=== PATIENT | female | born 1990 | race Caucasian/White ===

== ENCOUNTER → 2020-07-29 11:02 | Outpatient (BNVA) | payer OTHER, SELFPAY | PROVIDERS: PCP Internal Medicine; Referring Provider Internal Medicine; Visit Provider Surgery | DX: E66.01 Morbid (severe) obesity due to excess calories (principal); Z68.43 Body mass index [BMI] 50.0-59.9, adult | CPT/HCPCS: 99214 ==

== ENCOUNTER → 2020-09-30 08:09 | Outpatient (BNVA) | payer OTHER, SELFPAY | PROVIDERS: PCP Internal Medicine; Visit Provider Physician Assistant | DX: Z76.89 Persons encountering health services in other specified circumstances (principal) ==

== ENCOUNTER → 2020-12-10 16:05 | Outpatient (BNVA) | payer OTHER, SELFPAY | PROVIDERS: PCP Internal Medicine; Visit Provider Surgery | DX: E66.01 Morbid (severe) obesity due to excess calories (principal); Z68.43 Body mass index [BMI] 50.0-59.9, adult | CPT/HCPCS: 99212 ==

== ENCOUNTER → 2020-12-17 09:29 | Outpatient (BNVA) | payer OTHER, SELFPAY | PROVIDERS: PCP Internal Medicine; Visit Provider Surgery | DX: Z01.818 Encounter for other preprocedural examination (principal); E66.01 Morbid (severe) obesity due to excess calories; Z68.43 Body mass index [BMI] 50.0-59.9, adult; R06.02 Shortness of breath | CPT/HCPCS: 99212 ==

== ENCOUNTER 2021-01-22 08:11 | Inpatient (IN) | payer OTHER, SELFPAY ==
--- NOTE | 2020-12-17 11:29 | ECG_ITS ---
Test Reason : R06.02 SOB Blood Pressure : / mmHG Vent. Rate : 062 BPM Atrial Rate : 062 BPM P-R Int : 150 ms QRS Dur : 084 ms QT Int : 404 ms P-R-T Axes : 007 035 023 degrees QTc Int : 410 ms Normal sinus rhythm Normal ECG When compared with ECG of 04-JUL-2020 12:44, No significant change was found Referred By: Casi Whittington Electronically Signed By:Shubham Dhaliwal
[2020-12-17 13:07] LABS: MANUAL DIFF FLAG NO
[2020-12-17 13:17] LABS: Glucose Urine UA NEG (NEG); Leukocyte Esterase Urine NEG (NEG); Nitrite Urine NEG (NEG); Specific Gravity - Urine >= 1.030 (1.005-1.025); Urine Blood NEG (NEG); Urine Ketones NEG (NEG); Urine Protein NEG (NEG-TRACE)
[2020-12-17 13:19] LABS: Appearance Urine CLOUDY; Color Urine YELLOW
[2020-12-17 13:20] LABS: Prothrombin Time 11.4 SEC (10.8-13.0)
[2020-12-17 13:23] LABS: Basophils Absolute Auto 0.1 X10*3/uL (0.0-0.2); Basophils Percent Auto 0.6 % (0-2); Eosinophils Absolute Auto 0.2 X10*3/uL (0.0-0.4); Eosinophils Percent Auto 2.9 % (0-4); Hematocrit 43.4 % (37-47); Imm Gran Abs Auto 0.02 X10*3/uL (0.00-0.03); Imm Gran Pct Auto 0.3 % (0.0-0.4); Lymphocytes Absolute Auto 1.5 X10*3/uL (1.2-4.9); Lymphocytes Percent Auto 19.5 % (20-40); Mean Corpuscular HGB Conc 32.3 g/dl (31.0-35.0); Mean Corpuscular Hemoglobin 28.3 pg (27.0-33.0); Mean Corpuscular Volume 87.7 fL (80-98); Mean Platelet Volume 11.4 fL (9.4-12.3); Monocytes Absolute Auto 0.5 X10*3/uL (0.1-1.2); Monocytes Percent Auto 6.2 % (2-11); Neutrophils Absolute Auto 5.4 X10*3/uL (2.0-8.3); Neutrophils Percent Auto 70.5 % (45-73); Platelet Count 207 X10*3/uL (160-400); Red Blood Count 4.95 X10*6/uL (4.20-5.50); Red Cell Distribution Width 15.1 % (11.0-16.0); White Blood Count 7.7 X10*3/uL (4.8-10.8)
[2020-12-17 14:35] LABS: Albumin Level 4.2 g/dL (3.5-5.0); Anion Gap 15 (12-20); Blood Urea Nitrogen 10 mg/dL (9-16); Calcium 8.9 mg/dL (8.4-10.2); Carbon Dioxide 25 mmol/L (22-29); Chloride 104 mmol/L (96-108); Estimated Glomerular Filt Rate > 60; Glucose Random 100 mg/dL (60-115); Potassium 4.5 mmol/L (3.3-5.1); Sodium 139 mmol/L (135-145)
[2020-12-17 14:54] LABS: UPreg QC Valid YES; Urine Pregnancy NEGATIVE (NEGATIVE)
[2021-01-17 08:39] VITALS: BMI 53.6
--- NOTE | 2021-01-20 15:39 | MHC.SHP ---
Pre-Procedural Eval Section B Chief Complaint: severe obesity,Lab Work,EKG 12/17/2020 Allergies: Allergies Allergy/AdvReac Type Severity Reaction Status Date / Time haloperidol [Haldol] AdvReac Intermediate restless Verified 12/17/20 10:51 legs Plan I have reviewed the history and physical and performed a pertinent physical examination on my patient. No changes have occurred unless specified.
--- NOTE | 2021-01-21 09:21 | HO.ANESPROP2 ---
Documented by User: Airam Gonzalez 01/21/21 09:23 HPI - Anesthesia Eval Consult details Narrative: 30yo F for Gastrectomy Sleeve PMFSH Active Problems Active Problems: All Active Problems (Updated 01/17/21 @ 08:41 by Kathi Chapa) BMI 50.0-59.9, adult (Acute) Shortness of breath (Acute) Preoperative examination (Acute) Morbid obesity with BMI of 50.0-59.9, adult (Acute) Past Medical History Medical History Asthma Bipolar disorder Broken finger History of COVID-19 Morbid obesity with BMI of 50.0-59.9, adult Family History Family History Mother Asthma COPD (chronic obstructive pulmonary disease) Father No problems noted. Brother No problems noted. Brother Down syndrome Sister No problems noted. Sister No problems noted. Daughter No problems noted. Surgical History Surgical History H/O wisdom tooth extraction Social History Social History Do you presently have visiting nurse or other home services: No Alcohol intake: current Alcohol intake frequency: holidays/special occasions only Smoking Status: Former smoker Smoked in Last 30 Days: No Smoking Quit Date: 07/2020 Use of substances other than those prescribed or required for medical reasons: Yes Substance Use Type: Marijuana Substance Use Type Other:: advised to hold pre-op Substance Use Frequency: Daily Have you been hit, kicked, punched, or otherwise hurt by someone within the past year? If so, by whom?: No Advance Directives Information Provided: No Recently lost weight without trying: No Meds Allergies Allergy/AdvReac Type Severity Reaction Status Date / Time haloperidol [Haldol] AdvReac Intermediate restless Verified 12/17/20 10:51 legs Home Medications Medication Instructions Recorded Confirmed Last Taken Type albuterol sulfate 90 mcg/actuation 2 inh INHALATION Q6H PRN 07/29/20 01/17/21 Unknown History breath activated powder inhaler,sensor thiamine HCl (vitamin B1) 50 mg 50 mg PO DAILY 07/29/20 12/17/20 Unknown History tablet vitamin A 2,400 mcg capsule 10,000 unit PO DAILY cap 07/29/20 12/17/20 Unknown History sertraline 100 mg tablet 150 mg PO DAILY 12/10/20 01/17/21 01/22/21 History loratadine [Claritin] 10 mg PO DAILY 01/17/21 01/17/21 Unknown History Exam Exam Date and Time: January 21, [id number] Height,Weight and Vital Signs: Height 5 ft 7.5 in Weight 157.85 kg Pertinent Lab Results Pertinent Lab Results: Laboratory Tests 12/17/20 12/17/20 12/17/20 11:45 11:45 11:45 WBC 7.7 RBC 4.95 Hgb 14.0 Hct 43.4 MCV 87.7 MCH 28.3 MCHC 32.3 RDW 15.1 Plt Count 207 MPV 11.4 Immature Gran % (Auto) 0.3 Neut % (Auto) 70.5 Lymph % (Auto) 19.5 L Hitchcock % (Auto) 6.2 Eos % (Auto) 2.9 Baso % (Auto) 0.6 Lymph # (Auto) 1.5 Hitchcock # (Auto) 0.5 Eos # (Auto) 0.2 Baso # (Auto) 0.1 Abs Immat Gran (auto) 0.02 Absolute Neuts (auto) 5.4 Absolute Nucleated RBC 0.000 Nucleated RBC % (auto) 0.0 PT 11.4 INR 1.0 APTT 36.0 Sodium 139 Potassium 4.5 Chloride 104 Carbon Dioxide 25 Anion Gap 15 BUN 10 Creatinine 0.68 Estim Creat Clear Calc TNP Estimated GFR > 60 Random Glucose 100 Calcium 8.9 Albumin 4.2 Urine Color Urine Appearance Urine pH Ur Specific [place] Urine Protein Urine Glucose (UA) Urine Ketones Urine Blood Urine Nitrite Ur Leukocyte Esterase Urine Test Blood Type Antibody Screen 12/17/20 12/17/20 12/17/20 11:45 Unknown Unknown WBC RBC Hgb Hct MCV MCH MCHC RDW Plt Count MPV Immature Gran % (Auto) Neut % (Auto) Lymph % (Auto) Hitchcock % (Auto) Eos % (Auto) Baso % (Auto) Lymph # (Auto) Hitchcock # (Auto) Eos # (Auto) Baso # (Auto) Abs Immat Gran (auto) Absolute Neuts (auto) Absolute Nucleated RBC Nucleated RBC % (auto) PT INR APTT Sodium Potassium Chloride Carbon Dioxide Anion Gap BUN Creatinine Estim Creat Clear Calc Estimated GFR Random Glucose Calcium Albumin Urine Color YELLOW Urine Appearance CLOUDY Urine pH 6.0 Ur Specific [place] >= 1.030 H Urine Protein NEG Urine Glucose (UA) NEG Urine Ketones NEG Urine Blood NEG Urine Nitrite NEG Ur Leukocyte Esterase NEG Urine Test NEGATIVE Blood Type A Negative Antibody Screen NEGATIVE Narrative Narrative: EKG 12/2020 Vent. Rate : 062 BPM Atrial Rate : 062 BPM P-R Int : 150 ms QRS Dur : 084 ms QT Int : 404 ms P-R-T Axes : 007 035 023 degrees QTc Int : 410 ms Normal sinus rhythm Normal ECG When compared with ECG of 04-JUL-2020 12:44, No significant change was found Assessment and Plan Assessment Anesthesia Assessment: Chart Reviewed Documented by User: Tamia Miguel 01/22/21 10:07 [facility] Past Medical History Medical History Asthma Bipolar disorder Broken finger History of COVID-19 Morbid obesity with BMI of 50.0-59.9, adult Family History Family History Mother Asthma COPD (chronic obstructive pulmonary disease) Father No problems noted. Brother No problems noted. Brother Down syndrome Sister No problems noted. Sister No problems noted. Daughter No problems noted. Family history of problems with anesthesia: No Surgical History Surgical History H/O wisdom tooth extraction History of Problems with Anesthesia: No ( Woke up during dental surgery at oral surgeon's office.) Social History Social History Do you presently have visiting nurse or other home services: No Alcohol intake: current Alcohol intake frequency: holidays/special occasions only Smoking Status: Former smoker Smoked in Last 30 Days: No Smoking Quit Date: 07/2020 Use of substances other than those prescribed or required for medical reasons: Yes Substance Use Type: Marijuana Substance Use Type Other:: advised to hold pre-op Substance Use Frequency: Daily Have you been hit, kicked, punched, or otherwise hurt by someone within the past year? If so, by whom?: No Advance Directives Information Provided: No Recently lost weight without trying: No Meds Allergies Allergy/AdvReac Type Severity Reaction Status Date / Time haloperidol [Haldol] AdvReac Intermediate restless Verified 12/17/20 10:51 legs Home Medications Medication Instructions Recorded Confirmed Last Taken Type albuterol sulfate 90 mcg/actuation 2 inh INHALATION Q6H PRN 07/29/20 01/17/21 Unknown History breath activated powder inhaler,sensor thiamine HCl (vitamin B1) 50 mg 50 mg PO DAILY 07/29/20 12/17/20 Unknown History tablet vitamin A 2,400 mcg capsule 10,000 unit PO DAILY cap 07/29/20 12/17/20 Unknown History sertraline 100 mg tablet 150 mg PO DAILY 12/10/20 01/17/21 01/22/21 History loratadine [Claritin] 10 mg PO DAILY 01/17/21 01/17/21 Unknown History Exam Height,Weight and Vital Signs: Vital Signs Temp Pulse Resp BP Pulse Ox 01/22/21 08:35 97.1 F 82 16 127/79 97 Laboratory Results - last 24 hr 01/22/21 01/22/21 01/22/21 08:17 08:17 08:33 Urine Test NEGATIVE COVID-19 (MELVI) Negative COVID-19 Clin Com See Note Blood Type A Negative Antibody Screen NEGATIVE Narrative Narrative: Patient denies h/o MANUEL or snoring. Never had sleep study. Airway Mallampati Class: II TM Dist: >3cm Neck ROM: Full Heart: RRR Lungs: CTAB Assessment and Plan Assessment Anesthesia Assessment: Anesthesia Plan Discussed and Chart Reviewed Final Anesthetic Review NPO: Yes ASA Class: III Final Preanesthetic Review: No Changes in Pt Med Stat, Meds/Allgs Chart Reviewed, Consent Obtained/Reviewed and Anes Risks/Benef Reviewed Patient Risk: Intermediate Procedure Risk: Intermediate Assessment/Block/Sedation in SS: Assess/Block/Sedation-SS Anesthetic Plan Anesthetic Plan: GA Disposition: Inp. Admit - Standard Bed
[2021-01-22] VITALS (16 sets, daily range): BP systolic 127–172; BP diastolic 63–97; PULSE 66–103; RESP 16–22; TEMP 35.8–36.6; O2SAT 96–99
[2021-01-22 08:41] LABS: UPreg QC Valid YES; Urine Pregnancy NEGATIVE (NEGATIVE)
[2021-01-22] MEDS: Lactated Ringers 1,000 ML 100 ML IVCONT (08:53)
[2021-01-22 09:01] LABS: COVID-19 Test Negative (Negative)
--- NOTE | 2021-01-22 11:22 | PC.NURSE ---
Patient rounded on frequently by this RN, offered warm blankets, lights off, closed curtain, bed to be adjusted. For most recent round patient expressed frustration with long wait time and stated I just want to go home, I didnt even want this surgery in the first place This RN contacted MEASURER to get approximate time for end of current surgery to give patient a rough estimate of how much longer she would be waiting. OR stated They arent sure how much longer. Rn relayed to patient there is no exact time estimate, there is a surgery going on now that needs to finish first, taking longer than anticipated. Patient became angry and began speaking profanities, stating This is ridiculous, I dont want to wait here, I havent eaten in 24 hours, nothing to drink in 12 hours, my mouth hurts its so dry and you have no idea when I will be in. I've been here since 7 o clock why am I here. Patient reassured that they are doing their best to get her in in a timely manner, offered mouth swab to help with dry mouth, adjustments to bed - offers refused by patient. RN had someone walk into OR to get more approximate time. Per the OR, unable to give time due to complications in current case and they understand if patient wishes to leave. Patient again told we cannot give perfect time estimate but that she is the next case. Patient requested to speak with Dr Whittington and informed she is in OR and cannot speak directly at this time, but could be contacted through office, should she wish to leave. Patient then asked about rescheduling surgery and was directed to call Pk's office to speak with improvement coordinator in regards to any scheduling. Patient called office and after phone call finished, this RN checked with patient and patient stated I will wait one more hour and thats it . Offered blankets, more pillows, mouth swab - patient refused. Curtain to remain closed as requested. Will continue to round frequently.
--- NOTE | 2021-01-22 14:51 | P.BOP_ITS ---
Brief Operative Note Date of Service: 01/22/21 Pre-op diagnosis: Morbid obesity BMI 54.1 Post-op diagnosis: other (Same and hiatal hernia) Procedure: Laparoscopic sleeve gastrectomy, hiatal hernia repair, Rox block, and intraoperative endoscopy Implants: covidien Shruthi Surgeon: Casi Whittington MD Anesthesia: [employer] Technician: Debora Pineda Estimated blood loss (mL): 5 Pathology: other (Partial gastrectomy) Condition: stable Disposition: PACU
--- NOTE | 2021-01-22 14:52 | P.OP_ITS ---
Operative Note Operative Note Date of Service: 01/22/21 Narrative: Patient was brought into the operating room and placed on the operating room table in the supine position. General anesthesia was induced. Normal DVT prophylaxis was instituted and the patient received 2 grams of cefotetan preoperatively. The abdomen was then prepped and draped in the normal sterile fashion. A safety time-out was performed. A mixture of 1% lidocaine with epinephrine and ?% Marcaine plain was used to an esthetize the planned incision site in the left upper quadrant. A #11 scalpel was used to make a 5 mm left upper quadrant transverse incision through which a veress needle was placed. Three pops were heard going through the fascia. A saline drop test was used to confirm that the veress needle was intraabdominal. An optiview technique was then used to place a 5mm port in the left upper quadrant. A 5 mm 30 degree laproscope was then placed through this port and the abdominal cavity was surveyed and was normal. The patient was placed in reverse Trendelenburg positioning. A jarad liver retractor was then placed in the subxyphoid position and it was used to hold up the left lobe of the liver to the abdominal wall. This was secured to the bed using the liver retractor curtis. A ROWDY block was then performed for pain control on the right side of the abdomen. A 5 mm port was placed in the right upper quadrant near the falciform ligament. A 12 mm port was then placed in the mid epigastrium. One additional 5 mm port was placed in the left upper quadrant just to the left of the placement of the first port. I then performed a ROWDY block on the left side of the abdomen. I then removed the epigastric fat pad; there was a small anterior hiatal hernia noted. I reapproximated the left and right crura with a total of 2 stitches of 2-0 ethibond and a laparoscopic knot pusher. There was no residual hiatal hernia. I then opened up the angle of His. We then gained entry into the lesser sac about 4-5 cm from the pylorus. I had anesthesia place a 34 Cypriot orogastric tube into the distal antrum to use as a sizing tool for gastric pouch size. I divided the short gastric vessels up to the angle of His. We then started the creation of the gastric pouch by firing a 60 mm purple load endostapler up the stomach about 4-5 cm from the pylorus. We completed the creation of the gastric pouch using a total of 4 firings of a 60 mm and 1 firing of a 45 mm purple load stapler. We had anesthesia remove the orogastric tube, then we clamped across the distal antrum using a fired 60 mm endostapler. We flattened the patient and then instilled normal saline surrounding the newly created staple line. I then performed an on-table endoscopy. I passed the gastroscopy into the posterior oropharynx and down the esophagus evaluating the esophageal mucosa which was normal. There was no evidence of hiatal hernia. I passed the gastroscope into the gastric pouch and insufflated the gastric pouch. There was healthy pink mucosa and no evidence of active bleeding. There was no evidence of leak on laparosco py. I desufflated the gastric pouch and removed the endoscope. I removed the endostapler from the abdomen and suctioned the fluid from the left upper quadrant. I then removed the partial gastrectomy specimen through the epigastric 12 mm port site. I reapproximated the 12 mm port using a 0 maxon suture with a laparoscopic suture passer. I instilled local anesthetic into the fascial closure site and tied the suture down at a pressure of 8-10 mm of Hg. There was no residual fascial defect. We removed the liver retractor and the left upper quadrant 5 mm ports under direct visualization. There was no evidence of any active bleeding. I desufflated the abdomen through the last remaining port and removed the laparoscope and 5 mm port. We reapproximated all incisions with a 4-0 monocryl subcuticular stitch. We cleaned and dried the abdominal skin and applied dermabond skin glue. All count were correct at the end of the case. The patient was awake and in stable condition prior to extubation and transfer to the recovery room.
[2021-01-22] MEDS: ondansetron HCL 4 MG/2 ML VIAL IVPUSH (15:03)
[2021-01-22] MEDS: Famotidine/PF 20 MG/2 ML VIAL IVPUSH (20:40)
[2021-01-22] MEDS: 0.9 % Sodium Chloride Flush 3 ML SYRINGE IVFLUSH (20:40)
--- NOTE | 2021-01-22 22:06 | PM.PNGS ---
Subjective Subjective Date of Service: 01/23/21 <Debora Pineda PA-C - Last Filed: 01/23/21 11:04> 01/23/21 <Casi Whittington MD - Last Filed: 01/23/21 09:43> Interval history: POD #1: Patient is doing well. Has been ambulating, using the incentive spirometer, and tolerating po liquids. No nausea or abdominal pain. Has some mild incisional pain. <Debora Pineda PA-C - Last Filed: 01/23/21 11:04> Pod #1 s/p lap sleeve gastrectomy and hiatal hernia repair. Doing well. Tolerating stage 3 diet, ambulating in hallway. Pain well controlled. Denies nausea or vomiting. Vitals and labs reviewed and are within limit for post op day 1. On exam, patient is well appearing, abdomen is soft, nd, mild appropriate incisional tenderness. Incisions c/d/I with dermabond in place. Plan: d/c home today. Follow up with me in 2 weeks. <Casi Whittington MD - Last Filed: 01/23/21 09:43> Physical Exam Vital Signs: Vital Signs: Last Vital Signs Temp 97.2 F 01/22/21 19:11 Pulse 69 01/22/21 19:11 Resp 20 01/22/21 19:11 BP 157/94 H 01/22/21 19:11 Pulse Ox 97 01/22/21 19:11 Body Mass Index 53.6 <Debora Pineda PA-C - Last Filed: 01/23/21 11:04> Const: General: cooperative, comfortable, no acute distress, alert and awake <Debora Pineda PA-C - Last Filed: 01/23/21 11:04> Nutritional Appearance: obese <Debora Pineda PA-C - Last Filed: 01/23/21 11:04> GI: Inspection: Yes normal to inspection, Yes incision (normal, slight erythema at site of surgical glue, no tenderness/warmth/drai) and Yes obesity <Debora Pineda PA-C - Last Filed: 01/23/21 11:04> Extrem: Right lower extremity: lower leg Details: no tenderness; no edema <Debora Pineda PA-C - Last Filed: 01/23/21 11:04> Left lower extremity: lower leg Details: no tenderness; no edema <Debora Pineda PA-C - Last Filed: 01/23/21 11:04> Progress Note: A&P Assessment and plan (1) Morbid obesity with BMI of 50.0-59.9, adult: Status: Acute <Debora Pineda PA-C - Last Filed: 01/23/21 11:04> (2) S/P laparoscopic sleeve gastrectomy: Status: Acute <JOE Bowles Last Filed: 01/23/21 11:04> (3) Intestinal malabsorption following gastrectomy: Status: Acute <JOE Bowles Last Filed: 01/23/21 11:04> (4) Hiatal hernia: Status: Acute <JOE Bowles Last Filed: 01/23/21 11:04> (5) History of repair of hiatal hernia: Status: Acute <JOE Bowles Last Filed: 01/23/21 11:04> Assessment and Plan: POD #1: Patient is doing well and will be discharged home today. All the discharge instructions were reviewed with the patient and given in writing. Patient will follow up as scheduled in 2 weeks. <Debora Pineda PA-C - Last Filed: 01/23/21 11:04> Fall Risk Details Current Medications: Current Medications Generic Name Dose Route Start Last Admin Trade Name Freq PRN Reason Stop Dose Admin Albuterol Sulfate 2 puff 01/22/21 17:15 Albuterol Sulfate 90 Mcg 8 Gm Inhaler INHALE Q6H PRN shortness of breath or wheezing Famotidine 20 mg 01/22/21 21:00 01/22/21 20:40 Famotidine/Pf 20 Mg/2 Ml Vial IVPUSH 20 mg BID DELORES Administration Hydromorphone HCl 0.25 mg 01/22/21 17:15 Hydromorphone Hcl 0.5 Mg/0.5 Ml Syringe IVPUSH Q4H PRN Pain, Severe (Pain Scale 7-10) Cefotetan Disodium 2 gm/ 50 mls @ 100 mls/hr 01/23/21 01:00 Sodium Chloride IV 01/23/21 01:29 POSTOP ONE Lactated Ringer's 1,000 mls @ 125 mls/hr 01/22/21 17:15 01/22/21 17:39 Lr IVCONT Not Given .Q8H DELORES Cefotetan Disodium 2 gm/ 50 mls @ 100 mls/hr 01/23/21 01:00 Sodium Chloride IV 01/23/21 01:29 POSTOP ONE Acetaminophen 1,000 mg in 100 mls @ 16.7 mls/hr 01/22/21 19:00 01/22/21 19:24 Ofirmev IV 16.7 mls/hr .Q6H DELORES Administration Ondansetron HCl 4 mg 01/22/21 17:15 01/22/21 17:39 Ondansetron Hcl 4 Mg/2 Ml Vial IVPUSH Not Given Q8H DELORES Ondansetron HCl 8 mg 01/22/21 17:15 01/22/21 17:39 Ondansetron Odt 8 Mg Tab.Rapdis TRANSLINGU Not Given Q8H DELORES Sertraline HCl 150 mg 01/23/21 09:00 Sertraline Hcl 50 Mg Tablet PO DAILY DELORES Sodium Chloride 3 ml 01/22/21 17:15 01/22/21 20:40 0.9 % Sodium Chloride Flush 3 Ml Syringe IVFLUSH 3 ml QSHIFT DELORES Administration <Debora Pineda PA-C - Last Filed: 01/23/21 11:04> Time Spent With Patient Time: Total time spent is greater than 50% in coordination of care (as documented) at patient's floor/unit and/or counseling patient: <Debora Pineda PA-C - Last Filed: 01/23/21 11:04> Time with patient: less than 15 minutes <Casi Whittington MD - Last Filed: 01/23/21 09:43>
--- NOTE | 2021-01-22 22:22 | PM.DS ---
DS: Providers Provider Date of Service: 01/23/21 Date of admission: 01/22/21 08:11 Primary care physician: Ej Parra MD DS: Medications Discharge Medications Home Medications: Home Medications Medication Instructions Recorded Confirmed albuterol sulfate 90 mcg/actuation 2 inh INHALATION Q6H PRN 07/29/20 01/17/21 breath activated powder inhaler,sensor thiamine HCl (vitamin B1) 50 mg 50 mg PO DAILY 07/29/20 12/17/20 tablet vitamin A 2,400 mcg capsule 10,000 unit PO DAILY cap 07/29/20 12/17/20 sertraline 100 mg tablet 150 mg PO DAILY 12/10/20 01/17/21 loratadine [Claritin] 10 mg PO DAILY 01/17/21 01/17/21 Previous Rx's Medication Instructions Recorded acetaminophen 500 mg tablet 1,000 mg PO Q6H PRN #30 tab 12/17/20 docusate sodium 100 mg capsule 100 mg PO BID #30 cap 12/17/20 famotidine 20 mg tablet 20 mg PO DAILY #30 tab 12/17/20 ondansetron HCl 4 mg tablet 4 mg PO Q6H PRN #30 tab 12/17/20 simethicone 80 mg chewable tablet 80 mg PO TID-QID PRN #30 tab 12/17/20 DS: Summary Time Spent with Patient Time attestation: Total time spent providing and/or coordinating discharge services: Discharge coordination time: Greater than 30 minutes Physical Exam Vital Signs: Vital Signs: Last Vital Signs Temp 97.2 F 01/22/21 19:11 Pulse 69 01/22/21 19:11 Resp 20 01/22/21 19:11 BP 157/94 H 01/22/21 19:11 Pulse Ox 97 01/22/21 19:11 Body Mass Index 53.6 DS: Data Data Completed and Pending Pending studies at discharge: Pending at discharge 01/22/21 14:26 Surgical [PTH] Routine Labs on day of discharge: Laboratory Results - last 24 hr 01/22/21 01/22/21 01/22/21 08:17 08:17 08:33 Urine Test NEGATIVE COVID-19 ([facility]) Negative COVID-19 Clin Com See Note Blood Type A Negative Antibody Screen NEGATIVE Discharge Plan Discharge Patient Disposition: Home, Self-Care Discharge Diagnosis: obesity s/p LSG Referrals: Ej Parra MD [Primary Care Provider] - 1 Week Discharge Medications: Continued loratadine [Claritin] 10 mg Tablet 10 mg PO DAILY RF: 0 Proair Digihaler 90 mcg/actuation aero powdr breath act w/sensor 2 inh inhalation Q6H PRN (Reason: shortness of breath or wheezing) RF: 0 sertraline 100 mg tablet 150 mg PO DAILY RF: 0 acetaminophen [Tylenol Extra Strength] 500 mg tablet 1,000 mg PO Q6H PRN (Reason: pain) Qty: 30 RF: 1 famotidine [Pepcid AC] 20 mg tablet 20 mg PO DAILY Qty: 30 RF: 1 simethicone [Gas Relief (simethicone)] 80 mg tablet,chewable 80 mg PO TID-QID PRN (Reason: abdominal distention) Qty: 30 RF: 1 ondansetron HCl [Zofran] 4 mg tablet 4 mg PO Q6H PRN (Reason: nausea and vomiting) Qty: 30 RF: 1 docusate sodium [Colace] 100 mg capsule 100 mg PO BID Qty: 30 RF: 1 Discontinued thiamine HCl (vitamin B1) 50 mg tablet 50 mg PO DAILY RF: 0 vitamin A 8,000 unit capsule 10,000 unit PO DAILY RF: 0 Discharge Orders: Discharge Order (Routine); Ordered 01/23/21 Ordered By: Casi Whittington Diet: other Activity on Discharge: No heavy lifting Stand Alone Forms: Patient Portal Discharge page Activity Restrictions/Additional Instructions: Discharge Instructions 1. Please call your doctor or come back to the emergency room should any new symptoms arise. 2. You will receive a courtesy call from [facility] 24-48 hours after discharge. 3. Activity: abstain from alcohol, practice limited stair climbing, no bending, no driving, no exercise, no illicit substances, no lifting, no sex, no tub bath, no work. 4. Diet: continue stage 3 protein shakes until your [address] Whittington. 5. Dressing Change/Wound Care: Your incision is covered by surgical glue. If the area is tender, you may apply an ice pack for short intervals (no more than 20 minutes on, followed by at least 20 minutes off). Do not apply heat. Do not use creams, lotions, or topical antibiotics unless instructed to do so by your surgeon. These can cause infection or allergic reaction. 6. Call your doctor if: - Your temperature exceeds 101.5 F - You experience excessive pain or swelling - You have an unexpected reaction to medication - You have excessive bleeding - You experience continued vomiting/nausea - Your incision begins to separate - Your incision shows signs of infection such as increased redness, swelling, excessive pain, heat, or drainage (light blood or clear fluid is normal) 7. General instructions: - No lifting greater than 5 lbs for the next 4 weeks. - No driving within 24 hours of taking narcotic pain medications. - If you do not move your bowels in the next 2 days, please take milk of magnesia over the counter. Please follow the post op diet and do not advance your diet until you are seen in the office in about 2 weeks. - Please walk around your home every hour or two to prevent blood clots from forming in your legs. You do not need to wake from sleeping to walk. - Please sleep in a bed or couch to prevent kinking at the hips and knees. - Please take your incentive spirometer (your lung flash welder) home with you and use it for the next few days to prevent pneumonias. - You may shower, no hot tubs, baths or swimming pools. - Please call the office with any questions or concerns such as increasing abdominal pain, fever, chills, shortness of breath, chest pain, leg pain or swelling, or redness or drainage from your incisions. - Please stay on stage 3 diet which includes sugar free clear liquids such as ice pops and jello and broth and crystal light. Avoid all carbonation. Please drink 3 protein shakes with at least 25-30 grams of protein daily or 3 of the Celebrate 4:1 shakes which can be purchased in our office. The Celebrate shakes have all of the bariatric vitamins you need if you consume these shakes. If you are drinking other protein shakes, you will need to purchase the Celebrate multivitamins and calcium that we provide in the office (they will provide all the vitamins you need). Please make sure you are consuming at least 40-60 ounces of water in addition to your 3 protein shakes daily. 8. Do not hesitate to contact the office with any questions at . Discharge Summary Date of Service: 01/23/21 Admitting Diagnosis: Morbid obesity BMI 54.1 Discharge Diagnosis: other (Same and hiatal hernia) Procedure Performed: Laparoscopic sleeve gastrectomy, hiatal hernia repair, Rox block, and intraoperative endoscopy Discharge Medications: 1. Simethicone 80mg tablet chewable (Si tablet every 6 hours orally for 7 days, #28, 1 RF) q4h prn gas 2. Acetaminophen 500 mg tablet (Si tablets as needed every 6 hours orally for 30 days, #240, 0 RF) 3. Ondansetron 4 mg tablet disintegrating (Si tablet every 6 hours orally for 7 days, #28, 1 RF) 4. Colace 100 mg capsule (Si capsule twice a day for 30 days, #60, 2 RF) 5. Pepcid 20 mg chewable tablet (Si tablet twice a day for 30 days, #60, 3 RF) Discharge Instructions: The patient should continue on the stage III bariatric diet, which includes 3 protein shakes of at least 20-30g of protein on a daily basis. The patient was encouraged to avoid drinking liquids with her protein shakes. They should wait 30-45 minutes in between her meals and drinking water. She should drink at least 40-60 ounces of water on a daily basis. They should ambulate while at home to avoid any blood clots in her lower extremities. They should call with any questions or concerns such as increase in abdominal pain, persistent nausea, vomiting, redness and drainage from her incisions, fever, chills, shortness of breast, or chest pain beyond what is normal for her. The patient should avoid all heavy lifting greater than 5 pounds for the next 4 weeks. The patient is already scheduled to follow up with me in 2 weeks time, but should call the office with any questions prior to that follow up appointment. The patient should not advance their diet until they are seen in the office for the 2 week appointment. Hospital Course: The patient was admitted after undergoing LSG. They were started on stage II (1 oz of fluid every 15 minutes) on POD #0. The next morning they were evaluated and started on stage III diet (protein shakes). All labs were within normal limits. On post-operative day #1 she was feeling better, nausea and epigastric pain improved and they were tolerating stage III bariatric diet well. The patient was discharged home. Discharge Disposition: Home. Care Plan Goals: weight loss Health Concerns: obesity Plan of Treatment: s/p LSG Assessment: 1 day post op LSG, doing well and discharged home Discharge Date/Time: 01/23/21 09:52
[2021-01-22] MEDS: Lactated Ringers 1,000 ML 125 ML IVCONT (23:21)
[2021-01-23] MEDS: cefoTEtan disodium 2 GM in 0.9 % Sodium Chloride 50 ML IV (00:58)
[2021-01-23] MEDS: ondansetron HCL 4 MG/2 ML VIAL IVPUSH ×2 (00:58→08:08)
[2021-01-23 04:00] VITALS: BP 143/83; PULSE 77; RESP 20; TEMP 36.4; O2SAT 96
[2021-01-23 06:25] LABS: MANUAL DIFF FLAG NO
[2021-01-23 06:39] LABS: Basophils Percent Auto 0.1 % (0-2); Hematocrit 40.9 % (37-47); Hemoglobin 13.3 g/dl (12.0-16.0); Imm Gran Abs Auto 0.06 X10*3/uL (0.00-0.03); Imm Gran Pct Auto 0.4 % (0.0-0.4); Lymphocytes Absolute Auto 1.3 X10*3/uL (1.2-4.9); Lymphocytes Percent Auto 9.5 % (20-40); Mean Corpuscular HGB Conc 32.5 g/dl (31.0-35.0); Mean Corpuscular Hemoglobin 29.1 pg (27.0-33.0); Mean Corpuscular Volume 89.5 fL (80-98); Mean Platelet Volume 10.8 fL (9.4-12.3); Monocytes Absolute Auto 0.7 X10*3/uL (0.1-1.2); Monocytes Percent Auto 5.4 % (2-11); Neutrophils Absolute Auto 11.4 X10*3/uL (2.0-8.3); Neutrophils Percent Auto 84.6 % (45-73); Platelet Count 245 X10*3/uL (160-400); Red Blood Count 4.57 X10*6/uL (4.20-5.50); Red Cell Distribution Width 14.8 % (11.0-16.0); White Blood Count 13.5 X10*3/uL (4.8-10.8)
[2021-01-23] MEDS: Lactated Ringers 1,000 ML 125 ML IVCONT (06:42)
[2021-01-23 07:02] LABS: Anion Gap 15 (12-20); Blood Urea Nitrogen 10 mg/dL (9-16); Calcium 8.5 mg/dL (8.4-10.2); Carbon Dioxide 22 mmol/L (22-29); Chloride 104 mmol/L (96-108); Creatinine Clr Calc Pharmacy 180.5; Estimated Glomerular Filt Rate > 60; Glucose Random 104 mg/dL (60-115); Potassium 4.4 mmol/L (3.3-5.1); Sodium 137 mmol/L (135-145)
[2021-01-23 08:00] VITALS: BP 139/86; PULSE 79; RESP 16; TEMP 36.6; O2SAT 97
[2021-01-23] MEDS: Famotidine/PF 20 MG/2 ML VIAL IVPUSH (08:08)
[2021-01-23] MEDS: Sertraline HCL 50 MG TABLET 150 MG PO (08:08)
--- NOTE | 2021-01-23 09:40 | MHC.CM.PN ---
PATIENT LIVES WITH HER FAMILY. SHE IS COMPLETELY INDEPENDENT WITH HER ADLS. NO DME OR VNA SERVICES. SHE IS AWARE OF TODAY'S DISCHARGE. HER MOM WILL PROVIDE TRANSPORT. RN AWARE OF PLAN.
--- NOTE | 2021-01-24 09:46 | HO.POSTANES ---
Post Anesthesia Evaluation Post Anesthesia Evaluation Vital Signs: Patient seen on 01/23/21 at 710am, VSS Anesthesia: General Endotracheal-GETA Mental Status: Awake Pain Control: Satisfactory Nausea/Vomiting: None Hydration: Adequate Anesthesia-Related Issues: No Anes. Related Issues
== END 2021-01-23 09:52 | disposition home or self-care (01) | DRG 403 ==
LOC: HO.SSSA 08:48 → HO.S3 16:50
PROVIDERS: Nurse Practitioner; Physician Assistant; Admitting Provider Surgery; PCP Internal Medicine; Visit Provider Surgery
PROC: 0DB64Z3 Excision of Stomach, Percutaneous Endoscopic Approach, Vertical (ICD-10-PCS; CPT 43845; principal; 2021-01-22 10:20)
DX: E66.01 Morbid (severe) obesity due to excess calories (principal); K44.9 Diaphragmatic hernia without obstruction or gangrene; Z20.822 Contact with and (suspected) exposure to COVID-19; Z68.43 Body mass index [BMI] 50.0-59.9, adult; Z86.16 Personal history of COVID-19; Z79.899 Other long term (current) drug therapy
CPT/HCPCS: 36415; 80048; 81003; 81025; 82040; 85025; 85610; 85730; 86850; 86900; 87635; 88307; 88342; 93005; 99024; C1776; J0131; J1100; J1170; J2250; J2405; J2550; J3010

== ENCOUNTER 2021-01-25 09:17 | Emergency (ER) | payer OTHER, SELFPAY ==
--- NOTE | ~2021-01-25 | CT_ITS ---
EXAMINATION: CT ANGIOGRAM OF THE CHEST WITH AND WITHOUT CONTRAST (CT PULMONARY ANGIOGRAM FOR PE) CLINICAL INFORMATION: Chest pain. COMPARISON: None TECHNIQUE: Prior to contrast administration, noncontrast localization images were obtained. Subsequently, multidetector volumetric imaging was performed from the thoracic inlet to below the diaphragms following the administration of 65 mL Omnipaque 350 intravenous contrast. No contrast reaction reported Sagittal, coronal, and MIP oblique sagittal reformatted images were obtained on the CT workstation, uploaded to PACS, and reviewed. This CT examination was performed using dose optimization techniques as appropriate, variously including the following: *Automated exposure control *Adjustment of mA and/or kV according to patient size (this includes techniques or standardized protocols for targeted exams where dose is matched to indication/reason for exam; i.e. extremities or head) *Use of iterative reconstruction technique Total exam dose-length product 626 mGy-cm FINDINGS: QUALITY OF STUDY/CONTRAST BOLUS: Suboptimal. PULMONARY ARTERIES: No large central or segmental pulmonary emboli. THORACIC AORTA: No aneurysm or dissection. LUNG: No focal consolidation, nodules or masses. PLEURA: No pleural effusion or pneumothorax. MEDIASTINUM: Normal heart size. No pericardial effusion. No hilar or mediastinal lymphadenopathy. No evidence of septal bowing or right heart strain. CHEST WALL/AXILLA: No axillary or internal mammary lymphadenopathy. OSSEOUS STRUCTURES: No acute or suspicious osseous abnormality. UPPER ABDOMEN: Unremarkable. No reflux of contrast into the hepatic veins to suggest elevated right heart pressures. CT/CT angio chest PE protocol IMPRESSION: Suboptimal evaluation. No large central or segmental emboli demonstrated. Otherwise normal examination. Clear lungs. No pleural effusion or pneumothorax. VTE: negative
--- NOTE | 2021-01-25 09:36 | ECG_ITS ---
Test Reason : CHEST PAIN Blood Pressure : / mmHG Vent. Rate : 069 BPM Atrial Rate : 069 BPM P-R Int : 162 ms QRS Dur : 084 ms QT Int : 380 ms P-R-T Axes : 011 031 023 degrees QTc Int : 407 ms Normal sinus rhythm Normal ECG When compared with ECG of 17-DEC-2020 11:39, No significant change was found Referred By: Belkis Do Electronically Signed By:Shubham Dhaliwal
--- NOTE | 2021-01-25 09:38 | ED.CHESTPAIN ---
HPI - Chest Pain General Chief Complaint: Chest Pain Stated Complaint: CHEST PAIN Time Seen by Provider: 01/25/21 09:35 Source: patient Mode of arrival: ambulatory Limitations: no limitations History of Present Illness MD complaint: chest pain Pertinent past history: other (s/p gastric sleeve on Wednesday) Onset (ago): day(s) (yesterday) Timing of current episode: episodic Prior episodes: No Onset: during rest and during exertion Pain location: left chest Severity: moderate Quality: sharp Relieving factors: nothing Exacerbating factors: inspiration Context: recent surgery Associated symptoms: dyspnea Treatment prior to arrival: none Related Data Home Medications Medication Instructions Recorded Confirmed albuterol sulfate 90 mcg/actuation 2 inh INHALATION Q6H PRN 07/29/20 01/17/21 breath activated powder inhaler,sensor sertraline 100 mg tablet 150 mg PO DAILY 12/10/20 01/17/21 loratadine [Claritin] 10 mg PO DAILY 01/17/21 01/17/21 Previous Rx's Medication Instructions Recorded acetaminophen 500 mg tablet 1,000 mg PO Q6H PRN #30 tab 12/17/20 docusate sodium 100 mg capsule 100 mg PO BID #30 cap 12/17/20 famotidine 20 mg tablet 20 mg PO DAILY #30 tab 12/17/20 ondansetron HCl 4 mg tablet 4 mg PO Q6H PRN #30 tab 12/17/20 simethicone 80 mg chewable tablet 80 mg PO TID-QID PRN #30 tab 12/17/20 Allergies Allergy/AdvReac Type Severity Reaction Status Date / Time haloperidol [Haldol] AdvReac Intermediate restless Verified 12/17/20 10:51 legs Review of Systems Review of Systems: Constitutional : No Weight loss, No Fever, No Chills ENT/Mouth : No sore throat, No Rhinorrhea Eyes: No Eye Pain, No Swelling Cardiovascular : pos Chest Pain, pos SOB, no Dyspnea on Exertion, No Orthopnea, No Edema, No Palpitations Respiratory : No Cough, No Sputum Gastrointestinal : no Nausea, No Vomiting, No Diarrhea, No abdominal Pain, No Hematochezia, No Melena Genitourinary : No Dysuria, No Urinary Frequency Musculoskeletal : No joint pain, No Myalgias, No Joint Swelling Skin : No Skin Lesions, No rash Neuro : No Weakness, No Numbness, No Dizziness, No Headache Psych : No Anxiety/Panic, No Depression Heme/Lymph: No Bruising, No Lymphadenopathy Endocrine : No Polyuria, No Polydipsia All other systems reviewed and are negative [facility] Past Medical History Attestation statement: The following information was validated with the patient. Medical History Asthma Bipolar disorder Broken finger Hiatal hernia History of COVID-19 Intestinal malabsorption following gastrectomy Morbid obesity with BMI of 50.0-59.9, adult Surgical History H/O wisdom tooth extraction History of repair of hiatal hernia S/P laparoscopic sleeve gastrectomy Family History Family History Mother Asthma COPD (chronic obstructive pulmonary disease) Father No problems noted. Brother No problems noted. Brother Down syndrome Sister No problems noted. Sister No problems noted. Daughter No problems noted. Social History Social History Alcohol intake: current Alcohol intake frequency: holidays/special occasions only Smoking Status: Former smoker Use of substances other than those prescribed or required for medical reasons: Yes Substance Use Type: Marijuana Advance Directives: Yes Advance Directives Information Provided: Yes Advance Directives on File: No service: No Physical Exam Vital Signs: Vital Signs: Last Vital Signs Temp 98.1 F 01/25/21 11:00 Pulse 70 01/25/21 11:29 Resp 19 01/25/21 11:29 BP 125/69 01/25/21 11:29 Pulse Ox 97 01/25/21 11:29 Body Mass Index 52.4 Appearance: Alert. Oriented X3. No acute distress. Eyes: Pupils equal, round and reactive to light. ENT: Pharynx normal. Neck: Normal inspection. Neck supple. CVS: Normal heart rate and rhythm. Pulses normal. Respiratory: No respiratory distress. Breath sounds normal. Abdomen: Soft and nontender. incisions are c/d/i no signs of infection Skin: Skin warm and dry. Normal skin color. Normal skin turgor. Extremities: No lower extremity edema. No calf ttp Neuro: Oriented X 3. No motor deficit. No sensory deficit. Course Course Course Narrative: no acute findings, stable for DC labs reassuring, EKG and trop negative at 6 hr jeanette MDM - Chest Pain MDM Narrative Medical decision making narrative: 30 yo female s/p gastric sleeve surgery on Wednesday comes in now with c/o pleuritic chest pain and dyspnea at this time given recent procedure she will need labs, EKG, CTA for PE - IV morphine for pain, dispo per results and findings. Lab Data Result diagrams: 01/25/21 10:18 01/25/21 10:18 Labs: Lab Results 01/25/21 01/25/21 01/25/21 Range/Units 10:18 10:18 10:18 WBC 10.4 (4.8-10.8) X10*3/uL RBC 4.74 (4.20-5.50) X10*6/uL Hgb 13.7 (12.0-16.0) g/dl Hct 42.3 (37-47) % MCV 89.2 (80-98) fL MCH 28.9 (27.0-33.0) pg MCHC 32.4 (31.0-35.0) g/dl RDW 14.6 (11.0-16.0) % Plt Count 241 (160-400) X10*3/uL MPV 10.1 (9.4-12.3) fL Immature Gran % (Auto) 0.3 (0.0-0.4) % Neut % (Auto) 74.9 H (45-73) % Lymph % (Auto) 18.0 L (20-40) % [place] % (Auto) 5.3 (2-11) % Eos % (Auto) 1.1 (0-4) % Baso % (Auto) 0.4 (0-2) % Lymph # (Auto) 1.9 (1.2-4.9) X10*3/uL [place] # (Auto) 0.6 (0.1-1.2) X10*3/uL Eos # (Auto) 0.1 (0.0-0.4) X10*3/uL Baso # (Auto) 0.0 (0.0-0.2) X10*3/uL Abs Immat Gran (auto) 0.03 (0.00-0.03) X10*3/uL Absolute Neuts (auto) 7.8 (2.0-8.3) X10*3/uL Absolute Nucleated RBC 0.000 (0.0-0.012) X10*3/uL Nucleated RBC % (auto) 0.0 (0.0-0.2) /100WBC PT 14.0 H D (10.8-13.0) SEC INR 1.2 H (0.9-1.1) APTT 38.2 H (24.1-38.0) SEC Sodium 138 (135-145) mmol/L Potassium 4.3 (3.3-5.1) mmol/L Chloride 104 (96-108) mmol/L Carbon Dioxide 25 (22-29) mmol/L Anion Gap 13 (12-20) BUN 15 (9-16) mg/dL Creatinine 0.70 (0.5-1.4) mg/dL Estim Creat Clear Calc 187.2 Estimated GFR > 60 Random Glucose 89 (60-115) mg/dL Calcium 9.0 (8.4-10.2) mg/dL Magnesium 1.9 (1.6-2.6) mg/dL Total Bilirubin 0.7 (0.0-1.0) mg/dL Direct Bilirubin 0.2 (0.0-0.5) mg/dL AST 17 (5-31) U/L ALT 26 (0-31) U/L Alkaline Phosphatase 65 (39-117) U/L Troponin I High Sens (<3.5-17.0) ng/L Total Protein 6.9 (6.5-8.0) g/dL Albumin 4.1 (3.5-5.0) g/dL Lipase 33 (8-78) U/L 01/25/21 Range/Units 10:18 WBC (4.8-10.8) X10*3/uL RBC (4.20-5.50) X10*6/uL Hgb (12.0-16.0) g/dl Hct (37-47) % MCV (80-98) fL MCH (27.0-33.0) pg MCHC (31.0-35.0) g/dl RDW (11.0-16.0) % Plt Count (160-400) X10*3/uL MPV (9.4-12.3) fL Immature Gran % (Auto) (0.0-0.4) % Neut % (Auto) (45-73) % Lymph % (Auto) (20-40) % [place] % (Auto) (2-11) % Eos % (Auto) (0-4) % Baso % (Auto) (0-2) % Lymph # (Auto) (1.2-4.9) X10*3/uL [place] # (Auto) (0.1-1.2) X10*3/uL Eos # (Auto) (0.0-0.4) X10*3/uL Baso # (Auto) (0.0-0.2) X10*3/uL Abs Immat Gran (auto) (0.00-0.03) X10*3/uL Absolute Neuts (auto) (2.0-8.3) X10*3/uL Absolute Nucleated RBC (0.0-0.012) X10*3/uL Nucleated RBC % (auto) (0.0-0.2) /100WBC PT (10.8-13.0) SEC INR (0.9-1.1) APTT (24.1-38.0) SEC Sodium (135-145) mmol/L Potassium (3.3-5.1) mmol/L Chloride (96-108) mmol/L Carbon Dioxide (22-29) mmol/L Anion Gap (12-20) BUN (9-16) mg/dL Creatinine (0.5-1.4) mg/dL Estim Creat Clear Calc Estimated GFR Random Glucose (60-115) mg/dL Calcium (8.4-10.2) mg/dL Magnesium (1.6-2.6) mg/dL Total Bilirubin (0.0-1.0) mg/dL Direct Bilirubin (0.0-0.5) mg/dL AST (5-31) U/L ALT (0-31) U/L Alkaline Phosphatase (39-117) U/L Troponin I High Sens < 3.5 (<3.5-17.0) ng/L Total Protein (6.5-8.0) g/dL Albumin (3.5-5.0) g/dL Lipase (8-78) U/L ECG Data ECG #1: Attestation: I personally reviewed and interpreted this ECG as follows: ECG interpretation date: 01/25/21 ECG interpretation time: 10:11 Interpretation: Rate: 69 Rhythm: NSR [place]: normal Normal P waves. Normal RAVIN. Normal QRS complex. ST T wave : no RAUL, inverted t wave III qTC: normal prior studies: no acute ischemia The study has been interpreted contemporaneously by me. . Discharge Plan Discharge Clinical Impression: Atypical chest pain Patient Disposition: Home, Self-Care Instructions: Chest Pain (ED) Additional Instructions: return to ED for any worsening symptoms or concerns Prescriptions: No Action loratadine [Claritin] 10 mg Tablet 10 mg PO DAILY RF: 0 Proair Digihaler 90 mcg/actuation aero powdr breath act w/sensor 2 inh inhalation Q6H PRN (Reason: shortness of breath or wheezing) RF: 0 sertraline 100 mg tablet 150 mg PO DAILY RF: 0 acetaminophen [Tylenol Extra Strength] 500 mg tablet 1,000 mg PO Q6H PRN (Reason: pain) Qty: 30 RF: 1 famotidine [Pepcid AC] 20 mg tablet 20 mg PO DAILY Qty: 30 RF: 1 simethicone [Gas Relief (simethicone)] 80 mg tablet,chewable 80 mg PO TID-QID PRN (Reason: abdominal distention) Qty: 30 RF: 1 ondansetron HCl [Zofran] 4 mg tablet 4 mg PO Q6H PRN (Reason: nausea and vomiting) Qty: 30 RF: 1 docusate sodium [Colace] 100 mg capsule 100 mg PO BID Qty: 30 RF: 1 Referrals: Ej Parra MD [Primary Care Provider] - 2 days (if not better)
[2021-01-25 09:49] VITALS: BP 125/58; PULSE 74; RESP 19; TEMP 36.7; O2SAT 96; BMI 52.4
[2021-01-25 10:23] LABS: MANUAL DIFF FLAG NO
[2021-01-25 10:25] VITALS: RESP 12
[2021-01-25] MEDS: Morphine Sulfate 4 MG/ML CARTRIDGE IVPUSH (10:25)
[2021-01-25] MEDS: ondansetron HCL 4 MG/2 ML VIAL IVPUSH (10:25)
[2021-01-25 10:26] LABS: Basophils Percent Auto 0.4 % (0-2); Eosinophils Absolute Auto 0.1 X10*3/uL (0.0-0.4); Eosinophils Percent Auto 1.1 % (0-4); Hematocrit 42.3 % (37-47); Hemoglobin 13.7 g/dl (12.0-16.0); Imm Gran Abs Auto 0.03 X10*3/uL (0.00-0.03); Imm Gran Pct Auto 0.3 % (0.0-0.4); Lymphocytes Absolute Auto 1.9 X10*3/uL (1.2-4.9); Mean Corpuscular HGB Conc 32.4 g/dl (31.0-35.0); Mean Corpuscular Hemoglobin 28.9 pg (27.0-33.0); Mean Corpuscular Volume 89.2 fL (80-98); Mean Platelet Volume 10.1 fL (9.4-12.3); Monocytes Absolute Auto 0.6 X10*3/uL (0.1-1.2); Monocytes Percent Auto 5.3 % (2-11); Neutrophils Absolute Auto 7.8 X10*3/uL (2.0-8.3); Neutrophils Percent Auto 74.9 % (45-73); Platelet Count 241 X10*3/uL (160-400); Red Blood Count 4.74 X10*6/uL (4.20-5.50); Red Cell Distribution Width 14.6 % (11.0-16.0); White Blood Count 10.4 X10*3/uL (4.8-10.8)
[2021-01-25 10:31] LABS: INTERNATIONAL NORM RATIO 1.2 (0.9-1.1)
[2021-01-25 10:49] LABS: Alanine Aminotransferase 26 U/L (0-31); Albumin Level 4.1 g/dL (3.5-5.0); Alkaline Phosphatase 65 U/L (39-117); Anion Gap 13 (12-20); Aspartate Amino Transferase 17 U/L (5-31); Bilirubin Direct 0.2 mg/dL (0.0-0.5); Bilirubin Total 0.7 mg/dL (0.0-1.0); Blood Urea Nitrogen 15 mg/dL (9-16); Carbon Dioxide 25 mmol/L (22-29); Chloride 104 mmol/L (96-108); Creatinine Clr Calc Pharmacy 187.2; Estimated Glomerular Filt Rate > 60; Glucose Random 89 mg/dL (60-115); Lipase 33 U/L (8-78); Magnesium 1.9 mg/dL (1.6-2.6); Potassium 4.3 mmol/L (3.3-5.1); Sodium 138 mmol/L (135-145); Total Protein 6.9 g/dL (6.5-8.0)
[2021-01-25 10:55] LABS: Troponin-I High Sensitivity < 3.5 ng/L (<3.5-17.0)
[2021-01-25 11:00] VITALS: BP 125/69; PULSE 65; RESP 15; TEMP 36.7; O2SAT 96
[2021-01-25 11:05] LABS: Partial Thromboplastin Time 38.2 SEC (24.1-38.0)
[2021-01-25 11:29] VITALS: BP 125/69; PULSE 70; PULSE 73; RESP 19; O2SAT 97
[2021-01-25 12:12] VITALS: BP 122/43
[2021-01-28] MEDS: iohexoL 350 MG/ML 100 ML INFUS..BTL IV (11:19)
== END 2021-01-25 12:26 | disposition home or self-care (01) ==
PROVIDERS: Emergency Provider Emergency Medicine; PCP Internal Medicine
DX: R06.00 Dyspnea, unspecified (principal); F12.90 Cannabis use, unspecified, uncomplicated; Z79.899 Other long term (current) drug therapy; Z87.891 Personal history of nicotine dependence
CPT/HCPCS: 36415; 71275; 80048; 80076; 83690; 83735; 84484; 85025; 85610; 85730; 93005; 96365; 96375; 99285; J2270; J2405; Q9967

== ENCOUNTER → 2021-02-06 10:01 | Outpatient (BNVA) | payer OTHER, SELFPAY | PROVIDERS: PCP Internal Medicine; Visit Provider Surgery | DX: Z98.84 Bariatric surgery status (principal) | CPT/HCPCS: 99212 ==

== ENCOUNTER → 2021-04-01 08:57 | Outpatient (BNVA) | payer OTHER, SELFPAY | PROVIDERS: PCP Internal Medicine; Visit Provider Dietitian, Registered | DX: E66.01 Morbid (severe) obesity due to excess calories (principal); Z68.42 Body mass index [BMI] 45.0-49.9, adult | CPT/HCPCS: 97803 ==

== ENCOUNTER 2021-07-11 18:19 | Emergency (ER) | payer OTHER, SELFPAY ==
--- NOTE | ~2021-07-11 | US_ITS ---
EXAMINATION: US ABDOMEN LIMITED CLINICAL INFORMATION: Right upper quadrant epigastric pain. Nausea.. COMPARISON: CT chest January 25, 2021 TECHNIQUE: Real-time imaging of the right upper quadrant abdominal viscera. Color Doppler exam used. FINDINGS: PANCREAS: Portion of pancreatic head visualized are normal. The remainder the pancreas is obscured by bowel gas. LIVER: Diffuse increased echogenicity of liver parenchyma due to fatty change. No focal liver lesion or intrahepatic bile duct dilatation. GALLBLADDER: Normal. The gallbladder is physiologically distended without evidence of stones, sludge, polyps, wall thickening or pericholecystic fluid. COMMON BILE DUCT: Normal in caliber measuring 0.4 cm in diameter. RIGHT KIDNEY: Normal. No hydronephrosis. No renal calculi or focal parenchymal lesions. The kidney measures 10.0 cm in maximum dimension. FREE FLUID: None. US/US abdomen limited IMPRESSION: 1. No acute abnormality. No acute change of gallbladder. No bile duct dilatation. 2. Diffuse increased echogenicity of liver parenchyma consistent with fatty change.
[2021-07-11 19:01] VITALS: BP 133/83; PULSE 70; RESP 18; TEMP 36.5; O2SAT 98; BMI 38.7
--- NOTE | 2021-07-11 21:22 | ED.ABDPAIN ---
HPI - Abdominal Pain General Chief Complaint: Abdominal Pain Stated Complaint: Abdominal pain Time Seen by Provider: 07/11/21 21:01 Source: patient Mode of arrival: ambulatory History of Present Illness HPI narrative: 30-year-old female with history of depression and gastric sleeve surgery in the 1st part of this year who reports that she has had 2 days of severe epigastric pain on specifically changing position from lying down to sitting up that is been associated with some nausea but denies any vomiting and patient states she has continued to pass flatus and have bowel movements and denies any urinary symptoms. In addition, she denies that the gallbladder was removed at the time of her gastric surgery as well as denying any fevers, chills, shortness of breath, chest pain/palpitations, calf swelling or recent travel. In addition, she denies any use of NSAIDs. Related Data Home Medications Medication Instructions Recorded Confirmed albuterol sulfate 90 mcg/actuation 2 inh INHALATION Q6H PRN 07/29/20 02/06/21 breath activated powder inhaler,sensor (Proair Digihaler) sertraline 100 mg tablet 150 mg PO DAILY 12/10/20 02/06/21 loratadine 10 mg tablet (Claritin) 10 mg PO DAILY 01/17/21 02/06/21 Previous Rx's Medication Instructions Recorded docusate sodium 100 mg capsule 100 mg PO BID #30 cap 12/17/20 (Colace) famotidine 20 mg tablet (Pepcid AC) 20 mg PO DAILY #30 tab 12/17/20 simethicone 80 mg chewable tablet 80 mg PO TID-QID PRN #30 tab 12/17/20 (Gas Relief (simethicone)) cephalexin 500 mg capsule 500 mg PO Q12H 5 Days #10 cap 07/11/21 omeprazole 40 mg capsule,delayed 40 mg PO DAILY #30 cap 07/11/21 release Allergies Allergy/AdvReac Type Severity Reaction Status Date / Time haloperidol [Haldol] AdvReac Intermediate restless Verified 02/06/21 10:31 legs amphetamine [From Adderall] AdvReac Abdominal Verified 07/11/21 19:04 Pain dextroamphetamine AdvReac Abdominal Verified 07/11/21 19:04 [From Adderall] Pain prochlorperazine AdvReac Unknown Verified 07/11/21 19:04 [From Compazine] Review of Systems Review of Systems Pertinent positives and negatives as stated in HPI 10 point review of systems otherwise negative. Physical Exam Vital Signs: Vital Signs: Last Vital Signs Temp 98.9 F 07/11/21 21:43 Pulse 61 07/11/21 21:43 Resp 16 07/11/21 21:43 BP 109/63 07/11/21 21:43 Pulse Ox 99 07/11/21 21:43 Body Mass Index 38.7 VITAL SIGNS: Reviewed. GENERAL: Well developed, well nourished, in no acute distress. HEAD: Normocephalic/atraumatic EYES: PERRLA, EOMI OROPHARYNX: no oral lesions noted, posterior pharynx clear LUNGS: Normal breath sounds. No adventitious sounds or accessory muscle use. SpO2<98> CARDIOVASCULAR: Regular rate and rhythm without noted murmurs, no JVD or lower extremity edema. ABDOMEN: Obese, Soft, tenderness on palpation without rebound to the epigastric/right upper quadrant, exam is limited by body habitus, non-distended with bowel sounds. MUSCULOSKELETAL: No tenderness, deformities, or effusions noted on gross inspection. EXTREMITIES: No cyanosis, clubbing or edema. SKIN: Inspection of the skin reveals no rashes NEUROLOGIC: Alert and oriented x 4. Strength and sensation to light touch were grossly intact x 4. Course Course Course Narrative: 30-year-old female with history and clinical presentation suggestive of possible gastritis, gastric ulcer, gallbladder pathology. Less likely thought to be SBO or ileus. Review of all investigations demonstrates no acute findings other than a UTI. Patient was also provided with a GI cocktail for the very real possibility of some underlying gastritis as patient has endorsed she is under ?a lot of stress?. Otherwise, she is discharged in stable condition and will be treated with a course of antibiotics and instructed to follow-up with her primary care provider as well as her bariatric surgeon for further evaluation. MDM - Abdominal Pain Lab Data Result diagrams: 07/11/21 21:26 07/11/21 21: Labs: Lab Results 07/11/21 07/11/21 07/11/21 Range/Units 21:26 21:26 21:26 WBC 5.5 (4.8-10.8) X10*3/uL RBC 4.00 L (4.20-5.50) X10*6/uL Hgb 12.9 (12.0-16.0) g/dl Hct 39.2 (37-47) % MCV 98.0 (80-98) fL MCH 32.3 (27.0-33.0) pg MCHC 32.9 (31.0-35.0) g/dl RDW 16.5 H (11.0-16.0) % Plt Count 216 (160-400) X10*3/uL MPV 10.7 (9.4-12.3) fL Immature Gran % (Auto) 0.4 (0.0-0.4) % Neut % (Auto) 60.1 (45-73) % Lymph % (Auto) 29.2 (20-40) % [place] % (Auto) 6.5 (2-11) % Eos % (Auto) 3.6 (0-4) % Baso % (Auto) 0.2 (0-2) % Lymph # (Auto) 1.6 (1.2-4.9) X10*3/uL [place] # (Auto) 0.4 (0.1-1.2) X10*3/uL Eos # (Auto) 0.2 (0.0-0.4) X10*3/uL Baso # (Auto) 0.0 (0.0-0.2) X10*3/uL Abs Immat Gran (auto) 0.02 (0.00-0.03) X10*3/uL Absolute Neuts (auto) 3.3 (2.0-8.3) X10*3/uL Absolute Nucleated RBC 0.000 (0.0-0.012) X10*3/uL Nucleated RBC % (auto) 0.0 (0.0-0.2) /100WBC Sodium 143 (135-145) mmol/L Potassium 3.9 (3.3-5.1) mmol/L Chloride 109 H (96-108) mmol/L Carbon Dioxide 28 (22-29) mmol/L Anion Gap 10 L (12-20) BUN 4 L D (9-16) mg/dL Creatinine 0.66 (0.5-1.4) mg/dL Estim Creat Clear Calc 166.4 Estimated GFR > 60 Random Glucose 96 (60-115) mg/dL Lactic Acid 1.0 (0.5-2.0) mmol/L Calcium 8.8 (8.4-10.2) mg/dL Total Bilirubin 0.6 (0.0-1.0) mg/dL AST 19 (5-31) U/L ALT 18 (0-31) U/L Alkaline Phosphatase 75 (39-117) U/L Total Protein 5.5 L D (6.5-8.0) g/dL Albumin 3.3 L (3.5-5.0) g/dL Lipase 25 (8-78) U/L Urine Color Urine Appearance Urine pH (5.0-8.0) Ur Specific [place] (1.005-1.025) Urine Protein (NEG-TRACE) MG/DL Urine Glucose (UA) (NEG) MG/DL Urine Ketones (NEG) MG/DL Urine Blood (NEG) Urine Nitrite (NEG) Ur Leukocyte Esterase (NEG) Urine RBC (0) /HPF Urine WBC (0-4) /HPF Ur Squamous Epith Cells /LPF Calcium Oxalate Crystal /LPF Urine Bacteria /LPF Urine Test (NEGATIVE) 07/11/21 07/11/21 Range/Units 21:28 21:28 WBC (4.8-10.8) X10*3/uL RBC (4.20-5.50) X10*6/uL Hgb (12.0-16.0) g/dl Hct (37-47) % MCV (80-98) fL MCH (27.0-33.0) pg MCHC (31.0-35.0) g/dl RDW (11.0-16.0) % Plt Count (160-400) X10*3/uL MPV (9.4-12.3) fL Immature Gran % (Auto) (0.0-0.4) % Neut % (Auto) (45-73) % Lymph % (Auto) (20-40) % [place] % (Auto) (2-11) % Eos % (Auto) (0-4) % Baso % (Auto) (0-2) % Lymph # (Auto) (1.2-4.9) X10*3/uL [place] # (Auto) (0.1-1.2) X10*3/uL Eos # (Auto) (0.0-0.4) X10*3/uL Baso # (Auto) (0.0-0.2) X10*3/uL Abs Immat Gran (auto) (0.00-0.03) X10*3/uL Absolute Neuts (auto) (2.0-8.3) X10*3/uL Absolute Nucleated RBC (0.0-0.012) X10*3/uL Nucleated RBC % (auto) (0.0-0.2) /100WBC Sodium (135-145) mmol/L Potassium (3.3-5.1) mmol/L Chloride (96-108) mmol/L Carbon Dioxide (22-29) mmol/L Anion Gap (12-20) BUN (9-16) mg/dL Creatinine (0.5-1.4) mg/dL Estim Creat Clear Calc Estimated GFR Random Glucose (60-115) mg/dL Lactic Acid (0.5-2.0) mmol/L Calcium (8.4-10.2) mg/dL Total Bilirubin (0.0-1.0) mg/dL AST (5-31) U/L ALT (0-31) U/L Alkaline Phosphatase (39-117) U/L Total Protein (6.5-8.0) g/dL Albumin (3.5-5.0) g/dL Lipase (8-78) U/L Urine Color YELLOW Urine Appearance HAZY Urine pH 6.0 (5.0-8.0) Ur Specific [place] >= 1.030 H (1.005-1.025) Urine Protein TRACE (NEG-TRACE) MG/DL Urine Glucose (UA) NEG (NEG) MG/DL Urine Ketones NEG (NEG) MG/DL Urine Blood NEG (NEG) Urine Nitrite POS H (NEG) Ur Leukocyte Esterase NEG (NEG) Urine RBC 0 (0) /HPF Urine WBC 0 (0-4) /HPF Ur Squamous Epith Cells 2+ /LPF Calcium Oxalate Crystal 3+ /LPF Urine Bacteria 1+ /LPF Urine Test NEGATIVE (NEGATIVE) Discharge Plan Discharge Clinical Impression: UTI (urinary tract infection), Gastritis Patient Disposition: Home, Self-Care Instructions: Gastritis (ED), Urinary Tract Infection in Women (ED), Diet for Stomach Ulcers and Gastritis (ED) Additional Instructions: 1. Resume all home medications as prescribed. 2. Complete the entire course of antibiotics and follow-up with your primary care provider for follow-up of urine culture. 3. Will be started on an antacid, but you should follow-up with your bariatric surgeon for discussion of possible gastritis/ulcer. Return to the ER for acute worsening of symptoms. Prescriptions: New cephalexin 500 mg capsule 500 mg PO Q12H 5 Days Qty: 10 RF: 0 omeprazole 40 mg capsule,delayed release(DR/EC) 40 mg PO DAILY Qty: 30 RF: 0 No Action loratadine [Claritin] 10 mg Tablet 10 mg PO DAILY RF: 0 Proair Digihaler 90 mcg/actuation aero powdr breath act w/sensor 2 inh inhalation Q6H PRN (Reason: shortness of breath or wheezing) RF: 0 sertraline 100 mg tablet 150 mg PO DAILY RF: 0 famotidine [Pepcid AC] 20 mg tablet 20 mg PO DAILY Qty: 30 RF: 1 simethicone [Gas Relief (simethicone)] 80 mg tablet,chewable 80 mg PO TID-QID PRN (Reason: abdominal distention) Qty: 30 RF: 1 docusate sodium [Colace] 100 mg capsule 100 mg PO BID Qty: 30 RF: 1 Referrals: Ej Parra MD [Primary Care Provider] - 2 days (Gastritis, pls f/u Urine culture) [facility] Past Medical History Source: nursing notes reviewed Medical History Asthma Bipolar disorder Broken finger Hiatal hernia History of COVID-19 Intestinal malabsorption following gastrectomy Morbid obesity with BMI of 50.0-59.9, adult Surgical History H/O wisdom tooth extraction History of repair of hiatal hernia S/P laparoscopic sleeve gastrectomy Family History Family History Mother Asthma COPD (chronic obstructive pulmonary disease) Father No problems noted. Brother No problems noted. Brother Down syndrome Sister No problems noted. Sister No problems noted. Daughter No problems noted. Social History Social History Do you presently have visiting nurse or other home services: No Alcohol intake: current Alcohol intake frequency: holidays/special occasions only Patient Tobacco Use Status: Current everyday Tobacco user Use of substances other than those prescribed or required for medical reasons: No Substance Use Type: Marijuana Advance Directives: No Advance Directives Information Provided: Yes Patient : No service: No
[2021-07-11 21:36] LABS: MANUAL DIFF FLAG NO
[2021-07-11 21:37] LABS: Basophils Percent Auto 0.2 % (0-2); Eosinophils Absolute Auto 0.2 X10*3/uL (0.0-0.4); Eosinophils Percent Auto 3.6 % (0-4); Hematocrit 39.2 % (37-47); Hemoglobin 12.9 g/dl (12.0-16.0); Imm Gran Abs Auto 0.02 X10*3/uL (0.00-0.03); Imm Gran Pct Auto 0.4 % (0.0-0.4); Lymphocytes Absolute Auto 1.6 X10*3/uL (1.2-4.9); Lymphocytes Percent Auto 29.2 % (20-40); Mean Corpuscular HGB Conc 32.9 g/dl (31.0-35.0); Mean Corpuscular Hemoglobin 32.3 pg (27.0-33.0); Mean Platelet Volume 10.7 fL (9.4-12.3); Monocytes Absolute Auto 0.4 X10*3/uL (0.1-1.2); Monocytes Percent Auto 6.5 % (2-11); Neutrophils Absolute Auto 3.3 X10*3/uL (2.0-8.3); Neutrophils Percent Auto 60.1 % (45-73); Platelet Count 216 X10*3/uL (160-400); Red Cell Distribution Width 16.5 % (11.0-16.0); White Blood Count 5.5 X10*3/uL (4.8-10.8)
[2021-07-11 21:39] LABS: Appearance Urine HAZY; Color Urine YELLOW; Glucose Urine UA NEG (NEG); Leukocyte Esterase Urine NEG (NEG); Nitrite Urine POS (NEG); Specific Gravity - Urine >= 1.030 (1.005-1.025); UACC Culture Trigger YES; Urine Blood NEG (NEG); Urine Ketones NEG (NEG); Urine Protein TRACE MG/DL (NEG-TRACE)
[2021-07-11 21:42] LABS: UPreg QC Valid YES; Urine Pregnancy NEGATIVE (NEGATIVE)
[2021-07-11 21:43] VITALS: BP 109/63; PULSE 61; RESP 16; TEMP 37.2; O2SAT 99
[2021-07-11 21:54] LABS: Alanine Aminotransferase 18 U/L (0-31); Albumin Level 3.3 g/dL (3.5-5.0); Alkaline Phosphatase 75 U/L (39-117); Anion Gap 10 (12-20); Aspartate Amino Transferase 19 U/L (5-31); Bilirubin Total 0.6 mg/dL (0.0-1.0); Blood Urea Nitrogen 4 mg/dL (9-16); Calcium 8.8 mg/dL (8.4-10.2); Carbon Dioxide 28 mmol/L (22-29); Chloride 109 mmol/L (96-108); Creatinine Clr Calc Pharmacy 166.4; Estimated Glomerular Filt Rate > 60; Glucose Random 96 mg/dL (60-115); Lipase 25 U/L (8-78); Potassium 3.9 mmol/L (3.3-5.1); Sodium 143 mmol/L (135-145); Total Protein 5.5 g/dL (6.5-8.0)
[2021-07-11 21:55] LABS: Bacteria Urine 1+ /LPF; Calcium Oxalate Crystals Urine 3+ /LPF; RBC Urine 0 /HPF (0); Squamous Epithelial Cell Urine 2+ /LPF; WBC Urine 0 /HPF (0-4)
[2021-07-11] MEDS: cephALEXin 500 MG CAPSULE PO (23:08)
[2021-07-11] MEDS: Lidocaine HCl Viscous 2 % 15 ML SOLUTION 10 ML MUCOUS MEM (23:08)
[2021-07-11] MEDS: Ondansetron ODT 4 MG TAB.RAPDIS TRANSLINGU (23:08)
[2021-07-11] MEDS: Magnesium Hydrox/Alum Hydrox 30 ML ORAL.SUSP PO (23:08)
[2021-07-11 23:12] VITALS: BP 135/70; PULSE 68; RESP 16; O2SAT 97
== END 2021-07-11 23:25 | disposition home or self-care (01) ==
PROVIDERS: Emergency Provider Student in an Organized Health Care Education/Training Program; PCP Internal Medicine
DX: N39.0 Urinary tract infection, site not specified (principal); F12.90 Cannabis use, unspecified, uncomplicated; F17.200 Nicotine dependence, unspecified, uncomplicated; Z71.6 Tobacco abuse counseling; Z98.84 Bariatric surgery status; Z79.899 Other long term (current) drug therapy
CPT/HCPCS: 36415; 76705; 80053; 81001; 81025; 83605; 83690; 85025; 87086; 99284

== ENCOUNTER → 2021-07-23 10:00 | Outpatient (BNVA) | payer OTHER, SELFPAY | PROVIDERS: PCP Internal Medicine; Visit Provider Physician Assistant Surgical | DX: E66.9 Obesity, unspecified (principal); K90.9 Intestinal malabsorption, unspecified; U09.9 Post COVID-19 condition, unspecified; R43.1 Parosmia; F17.210 Nicotine dependence, cigarettes, uncomplicated; F12.20 Cannabis dependence, uncomplicated; Z68.38 Body mass index [BMI] 38.0-38.9, adult; Z87.19 Personal history of other diseases of the digestive system; Z90.3 Acquired absence of stomach [part of]; Z88.8 Allergy status to other drugs, medicaments and biological substances; Z79.899 Other long term (current) drug therapy | CPT/HCPCS: 99212 ==

== ENCOUNTER → 2021-08-21 07:58 | Outpatient (BNVA) | payer OTHER, SELFPAY | PROVIDERS: PCP Internal Medicine; Visit Provider Dietitian, Registered ==

== ENCOUNTER 2022-01-11 11:01 | Emergency (ER) | payer OTHER, SELFPAY ==
[2022-01-11 11:13] VITALS: BP 126/78; PULSE 119; RESP 18; TEMP 37.1; O2SAT 97; BMI 31.1
== END 2022-01-11 17:31 | disposition left against medical advice (07) ==
PROVIDERS: Emergency Provider Emergency Medicine; PCP Internal Medicine
DX: R50.9 Fever, unspecified (principal); R11.2 Nausea with vomiting, unspecified; R51.9 Headache, unspecified
CPT/HCPCS: 99282